=== PATIENT | female | born 1990 | race Caucasian/White ===

== ENCOUNTER 2022-04-26 00:16 | Emergency (ER) | payer OTHER, MEDICAID, SELFPAY ==
--- NOTE | ~2022-04-26 | CT_ITS ---
EXAMINATION: CT ABDOMEN AND PELVIS WITH CONTRAST CLINICAL INFORMATION: Right lower quadrant pain. Rule out appendicitis. COMPARISON: None available. TECHNIQUE: Multidetector volumetric images were obtained from the superior aspect of the liver through the pubic symphysis following administration 85 mL of Omnipaque 350 intravenous contrast. Sagittal and coronal reformatted images were obtained on the technologist's workstation. Oral contrast: No This CT examination was performed using dose optimization techniques as appropriate, variously including the following: *Automated exposure control *Adjustment of mA and/or kV according to patient size (this includes techniques or standardized protocols for targeted exams where dose is matched to indication/reason for exam; i.e. extremities or head) *Use of iterative reconstruction technique DLP: 901 mGy-cm FINDINGS: LUNG BASES: The visualized lung bases are unremarkable. LIVER, GALLBLADDER, AND BILIARY TREE: The liver is normal in size, shape, and attenuation. No focal hepatic lesion or biliary ductal dilatation is present. The gallbladder is unremarkable with no evidence of radiopaque gallstones, gallbladder wall thickening, or obvious pericholecystic inflammatory changes. PANCREAS: Unremarkable. SPLEEN: Unremarkable. ADRENAL GLANDS: Unremarkable. KIDNEYS AND URETERS: The kidneys are normal in size, shape, and attenuation. No hydronephrosis, hydroureter, or calculi seen. No perinephric stranding. BLADDER: Unremarkable. GASTROINTESTINAL TRACT: The stomach is unremarkable. Normal caliber small bowel. No obstruction. Retrocecal appendix. Gas within much of the appendix without wall thickening or dilatation. No free air. Small volume free fluid. ABDOMINAL WALL: No significant hernia is appreciated. LYMPH NODES: Normal. VASCULAR: Unremarkable. PELVIC VISCERA: Anteverted uterus. There is a left adnexal mass measuring 11.7 x 7.4 x 12.3 cm. This has the appearance of a dermoid, with associated fat and calcifications. OSSEOUS STRUCTURES: Unremarkable. CT/CT abdomen pelvis w IV con IMPRESSION: 1. Normal appendix. 2. Large left adnexal mass with associated fat and calcifications. This has the appearance of a dermoid. Fleischner guidelines were followed.
--- NOTE | ~2022-04-26 | US_ITS ---
EXAMINATION: US PELVIC COMPLETE US PELVIC OVARIAN DOPPLER CLINICAL INFORMATION: Left ovarian cyst. Evaluate for torsion. COMPARISON: CT abdomen/pelvis dated 04/26/2022. TECHNIQUE: Ultrasound of the pelvis is performed using both transabdominal and transvaginal transducers along with Doppler. Transvaginal imaging is performed due to inadequate visualization transabdominally. FINDINGS: Uterus: The uterus is anteverted and measures 10.5 x 4.1 x 5.9 cm. The double wall endometrial thickness is 0.1 mm. The uterus is smooth in contour and has normal myometrial echogenicity. No visible fibroid. Adnexa: Both ovaries are visualized. There is no pelvic ascites or fluid collection. Right ovary measures 2.4 x 1.9 x 2.3 cm. Ovarian volume of 5.5 mL. Simple right ovarian follicle measuring up to 1.9 cm. Findings are not clinically significant. Left ovary measures 12.2 x 7.8 x 11.8 cm. Ovarian volume of 587 mL. Complex cystic lesion redemonstrated in the left adnexa/ovary measuring up to 10.7 x 7.8 x 11.0 cm with calcification and echogenic, fat components. Findings are consistent with a dermoid. Unable to detect vascular flow within the ovaries due to difficult visualization. Ovarian torsion cannot be excluded in the appropriate clinical setting. US/US pelvic ovarian doppler IMPRESSION: 1. Complex left ovarian lesion with calcification and echogenic, fat components, consistent with a dermoid. Unable to detect vascular flow within the ovaries due to difficult visualization. Ovarian torsion cannot be excluded in the appropriate clinical setting. 2. Sonographically unremarkable uterus and right ovary.
--- NOTE | ~2022-04-26 | US_ITS ---
EXAMINATION: US PELVIC COMPLETE US PELVIC OVARIAN DOPPLER CLINICAL INFORMATION: Left ovarian cyst. Evaluate for torsion. COMPARISON: CT abdomen/pelvis dated 04/26/2022. TECHNIQUE: Ultrasound of the pelvis is performed using both transabdominal and transvaginal transducers along with Doppler. Transvaginal imaging is performed due to inadequate visualization transabdominally. FINDINGS: Uterus: The uterus is anteverted and measures 10.5 x 4.1 x 5.9 cm. The double wall endometrial thickness is 0.1 mm. The uterus is smooth in contour and has normal myometrial echogenicity. No visible fibroid. Adnexa: Both ovaries are visualized. There is no pelvic ascites or fluid collection. Right ovary measures 2.4 x 1.9 x 2.3 cm. Ovarian volume of 5.5 mL. Simple right ovarian follicle measuring up to 1.9 cm. Findings are not clinically significant. Left ovary measures 12.2 x 7.8 x 11.8 cm. Ovarian volume of 587 mL. Complex cystic lesion redemonstrated in the left adnexa/ovary measuring up to 10.7 x 7.8 x 11.0 cm with calcification and echogenic, fat components. Findings are consistent with a dermoid. Unable to detect vascular flow within the ovaries due to difficult visualization. Ovarian torsion cannot be excluded in the appropriate clinical setting. US/US pelvic complete IMPRESSION: 1. Complex left ovarian lesion with calcification and echogenic, fat components, consistent with a dermoid. Unable to detect vascular flow within the ovaries due to difficult visualization. Ovarian torsion cannot be excluded in the appropriate clinical setting. 2. Sonographically unremarkable uterus and right ovary.
[2022-04-26 00:48] VITALS: BP 135/101; PULSE 123; RESP 16; TEMP 36.9; O2SAT 97; BMI 43.1
[2022-04-26 01:19] LABS: MANUAL DIFF FLAG NO
[2022-04-26 01:20] LABS: Basophils Percent Auto 0.2 % (0-2); Eosinophils Absolute Auto 0.1 X10*3/uL (0.0-0.4); Eosinophils Percent Auto 0.4 % (0-4); Hematocrit 49.7 % (37.0-47.0); Hemoglobin 16.6 g/dl (12.0-16.0); Imm Gran Abs Auto 0.12 X10*3/uL (0.00-0.03); Imm Gran Pct Auto 0.5 % (0.0-0.4); Lymphocytes Absolute Auto 2.2 X10*3/uL (1.2-4.9); Lymphocytes Percent Auto 9.8 % (20-40); Mean Corpuscular HGB Conc 33.4 g/dl (31.0-35.0); Mean Corpuscular Hemoglobin 28.3 pg (27.0-33.0); Mean Corpuscular Volume 84.8 fL (80.0-98.0); Mean Platelet Volume 9.4 fL (9.4-12.3); Monocytes Absolute Auto 0.9 X10*3/uL (0.1-1.2); Monocytes Percent Auto 3.9 % (2-11); Neutrophils Absolute Auto 19.6 x10*3/uL (2.0-8.3); Neutrophils Percent Auto 85.2 % (45-73); Platelet Count 376 X10*3/uL (160-400); Red Blood Count 5.86 X10*6/uL (4.20-5.50); Red Cell Distribution Width 13.3 % (11.0-16.0)
--- NOTE | 2022-04-26 01:32 | ED_ITS ---
HPI - Abdominal Pain General Chief Complaint: Abdominal Pain Stated Complaint: Abdominal pain, weakness, vomiting Time Seen by Provider: 04/26/22 01:01 Source: patient and family (, Sourav) Mode of arrival: ambulatory Limitations: language barrier (Patient is Sudanese-speaking only, interpreter and translator used. Patient's speaks Pashto and Sudanese) History of Present Illness HPI narrative: 31-year-old female who presents emergency department for evaluation of abdominal pain. She states the pain started yesterday morning and she thought that she is having cramps similar to which she experiences when she starts her menstrual periods. She states that the pain however became more severe and was located in her epigastric area and throughout her entire abdomen. The pain was intermittent but 8/10 at its worst. The patient states she had multiple episodes of vomiting and 4 episodes of loose diarrheal stool. There was no blood in the emesis or the stool. She states she was feeling very weak. She states she had shaking chills. She felt dizzy and became very diaphoretic therefore her brought her to the emergency department for evaluation. The patient denied fever, rhinorrhea, sore throat, cough, chest pain, shortness of breath. She denied frequency, urgency or dysuria. She states she has not had any menstrual bleeding. She denied dark tarry stools or bloody stools. Related Data Allergies Allergy/AdvReac Type Severity Reaction Status Date / Time SEAFOOD Allergy Severe ANAPHYLAXIS Uncoded 10/26/19 19:46 Review of Systems Review of Systems Yes all other systems are reviewed and are negative [facility] Past Medical History [facility] Narrative: Past medical history: Pre diabetes, hypertension. Past surgical history : Right ovarian teratoma. Social history: She is and is here with her Sourav. She denies tobacco use, alcohol use and drug use. Physical Exam ED Vital Signs: Vital Signs - 24 hr 04/26/22 00:48 Temperature 98.4 F Pulse Rate 123 H Respiratory Rate 16 Blood Pressure 135/101 H Pulse Oximetry 97 BMI result Body Mass Index 43.1 Const General: cooperative and no acute distress Orientation/consciousness: oriented to person and oriented to place Limitations: no limitations HENMT Head: Yes normal to inspection, Yes normocephalic and Yes atraumatic Ears: external ears normal General nose exam: Normal external nose present Face and sinus: Yes normal facial exam Mouth: Normal oral and palatal mucosa present Throat: Yes posterior oropharynx normal Eyes General: appearance normal, both eyes and all related structures Pupils: Equal, round and reactive pupils present Neck Neck: Yes normal visual inspection, Yes no lymphadenopathy, Yes trachea midline and Yes supple Chest Chest palpation & inspection: normal inspection of the chest and normal palpation of entire chest wall Resp Effort & Inspection: normal respiratory effort and able to speak in complete sentences Auscultation: clear to auscultation bilaterally Cardio Rate: regular rate Rhythm: regular rhythm Heart sounds: S1 normal heart sound present, S2 normal heart sound present and no murmurs GI Inspection: Yes normal to inspection Palpation (GI): Soft to palpation, Tenderness to palpation present (GI) (Mild di ffuse tenderness) in the RLQ (Moderate) and no guarding Auscultation: normal bowel sounds General: Yes no CVA tenderness Back/Spine/Pelvis Back: no CVA tenderness Skin General skin exam: no rashes or lesions noted Neuro General: oriented to person and oriented to place Cranial nerves: Yes Equal, round and reactive pupils present Cognition (Neuro): normal cognition Motor exam (neuro): 5/5 motor strength present throughout Extrem General: Yes normal to inspection Psych Appearance: grossly normal Speech and movement: Normal speech and movement present Affect: normal affect Attitude: cooperative Thought process: Normal thought process present Medical Decision Making Medical Decision Making MDM Narrative: 31-year-old female who presents emergency department for evaluation of abdominal pain that started yesterday morning, got progressively worse, associated with nausea, vomiting, diaphoresis, weakness and diarrhea. The patient heart rate was elevated at 123 and her blood pressure was elevated 135/101. Abdominal exam revealed moderate localized right lower quadrant tenderness and mild diffuse tenderness. I ordered a CBC, BMP, liver panel, lipase, quantitative beta-hCG, lactic acid, blood cultures, x2, COVID-19, influenza and RSV. CT scan of the abdomen pelvis with IV contrast will be obtained. Patient's pain was treated with Toradol 15 mg IV, nausea was treated with Zofran 4 mg IV. Patient has a markedly elevated white blood cell count at 23,000 therefore I ordered Unasyn 3 g IV. 0143: My interpretation the patient's laboratory evaluation is as follows: WBCs elevated 23,000 with a left shift 85 neutrophils and 10 lymphocytes. H&H was elevated 16.6 and 49.7-this could be secondary to hemoconcentration. Glucose elevated 120. LFTs and lipase were normal. The urine test negative. Urinalysis negative. At the end of my shift, the patient's CT scan is pending therefore the patien t's care was turned over to my colleague, Dr. Tina Beal. Lab Data 04/26/22 01:15 04/26/22 01:15 Labs: Lab Results 04/26/22 Range/Units 01:15 WBC 23.0 H (4.8-10.8) X10*3/uL RBC 5.86 H (4.20-5.50) X10*6/uL Hgb 16.6 H (12.0-16.0) g/dl Hct 49.7 H (37.0-47.0) % MCV 84.8 (80.0-98.0) fL MCH 28.3 (27.0-33.0) pg MCHC 33.4 (31.0-35.0) g/dl RDW 13.3 (11.0-16.0) % Plt Count 376 (160-400) X10*3/uL MPV 9.4 (9.4-12.3) fL Immature Gran % (Auto) 0.5 H (0.0-0.4) % Neut % (Auto) 85.2 H (45-73) % Lymph % (Auto) 9.8 L (20-40) % Wheeler % (Auto) 3.9 (2-11) % Eos % (Auto) 0.4 (0-4) % Baso % (Auto) 0.2 (0-2) % Lymph # (Auto) 2.2 (1.2-4.9) X10*3/uL Wheeler # (Auto) 0.9 (0.1-1.2) X10*3/uL Eos # (Auto) 0.1 (0.0-0.4) X10*3/uL Baso # (Auto) 0.0 (0.0-0.2) X10*3/uL Abs Immat Gran (auto) 0.12 H (0.00-0.03) X10*3/uL Absolute Neuts (auto) 19.6 H (2.0-8.3) x10*3/uL Absolute Nucleated RBC 0.000 (0.0-0.012) X10*3/uL Nucleated RBC % (auto) 0.0 (0.0-0.2) /100WBC Discharge Plan Discharge Clinical Impression: Abdominal pain, Nausea & vomiting, Diarrhea, Leukocytosis Patient Disposition: Still a Patient
[2022-04-26 01:36] LABS: Alanine Aminotransferase 13 U/L (0-31); Albumin Level 3.7 g/dL (3.5-5.0); Alkaline Phosphatase 79 U/L (39-117); Anion Gap 14 (12-20); Aspartate Amino Transferase 12 U/L (5-31); Bilirubin Direct < 0.2 mg/dL (0.0-0.5); Bilirubin Total 0.4 mg/dL (0.0-1.0); Blood Urea Nitrogen 14 mg/dL (9-16); Calcium 9.3 mg/dL (8.4-10.2); Carbon Dioxide 23 mmol/L (22-29); Chloride 106 mmol/L (96-108); Creatinine Clr Calc Pharmacy 119.5; Estimated Glomerular Filt Rate > 60; Glucose Random 120 mg/dL (60-115); Lipase 16 U/L (8-78); Potassium 4.4 mmol/L (3.3-5.1); Sodium 139 mmol/L (135-145); Total Protein 7.1 g/dL (6.5-8.0)
[2022-04-26 01:52] LABS: Appearance Urine Turbid; Color Urine RED; Glucose Urine UA Negative (Negative); Leukocyte Esterase Urine Trace (Negative); Nitrite Urine Negative (Negative); PH 5.5 (5.0-9.0); Specific Gravity - Urine >= 1.030 (1.005-1.025); Urine Blood Large (3+) (Negative); Urine Ketones Trace mg/dL (Negative); Urine Protein 100 (2+) mg/dL (Neg-Trace)
[2022-04-26 01:53] LABS: UMIC TRIGGER UACC YES
[2022-04-26 01:54] LABS: RBC Urine >20 /HPF (0-2); Squamous Epithelial Cell Urine 0-2 /HPF (0-2); UPreg QC Valid YES; Urine Pregnancy NEGATIVE (NEGATIVE); WBC Urine 0-5 /HPF (0-5)
[2022-04-26 01:55] LABS: Bacteria Urine None Seen (None Seen); Hyaline Casts Urine 0-2 /LPF (0-2)
[2022-04-26 01:57] LABS: Influenza A PCR NEGATIVE (Negative); Influenza B PCR NEGATIVE (Negative); Resp Syncy Virus RNA Qual PCR NEGATIVE (Negative); SARS COV2 PCR INHOUSE NEGATIVE (Negative)
--- OUTSIDE RECORDS SUMMARY | 2022-04-26 01:58 | XMS_ITS | Continuity of Care Document ---
:1990 Author Organization [facility] Address [address] [place] [phone]- Care Team Providers Name Role Phone Emil GEORGE, Alia Waller Primary Care Physician [place] [facility] [place] 06/17[place]20 - 07/17/20 [facility] [address] [place] [id number]- Attending Physician: Joselo ESPAÑA, Ирина Michaels Admitting Physician: Joselo ESPAÑA, Ирина Michaels Allergies, Adverse Reactions, Alerts Substance Reaction Severity Status penicillin rash Active Immunizations Given and Recorded Vaccine Date Status Refusal Reason influenza virus vaccine, inactivated 03/05/17 Given Medications Flonase 50 mcg/inh nasal spray 1 sprays, Nares, Both, 2 times a day, in each nostril, # 15.8 mL, 1 Refills, Maintenance, 04/03/20 15:48:00 EST, [place], [facility] Partial fill upon patient request if the prescriptionis for a schedule II opioid drug., 1 sprays Nares... Start Date: 04/03/20 Status: OrderedLexapro 10 mg oral tablet 1 tablet = 10 mg, By Mouth, Daily, # 30 tablet, 3 Refills, Maintenance, 06/17/20 15:43:00 EDT, Tablet, [facility] Partial fill upon patient request if the prescription is for a schedule II opioid drug., 165, cm, 06/17/20 14:21:00 EDT,... 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
--- OUTSIDE RECORDS SUMMARY | 2022-04-26 01:58 | XMS_ITS | Continuity of Care Document ---
:1990 Author Organization [facility] Address [address] [place] [phone]- Care Team Providers Name Role Phone Emil GEORGE, Alia Waller Primary Care Physician Encounter [facility] [place] Date(s): 11/19/21 - 12/19/21 [facility] [address] [place] [id number] Attending Physician: Krishna Martinez Admitting Physician: Krishna Martinez Referring Physician: AdmtrKrishna Allergies, Adverse Reactions, Alerts Substance Reaction Severity Status NIFEdipine Active penicillin rash Active Seafood Active hydroCHLOROthiazide dizziness Active amLODIPine bilateral lower extremity edema Active Immunizations Given and Recorded Vaccine Date Status Refusal Reason influenza virus vaccine, inactivated 03/05/17 Given Medications acetaminophen 325 mg oral tablet 650 mg, 2, tablet, By Mouth, 3 times a day, PRN, # 180 tablet, Refills 1, Tot. Refills 1, Maintenance, for pain, 09/19/20 17:48:00 EDT, Route to Pharmacy Electronically, [facility]/pharmacy #[id number], Partial fill upon patient request if the prescription is for... Start Date: 09/19/20 Status: Orderedazelastine 0.05% ophthalmic solution 1 drops, Eyes, Both, 2 times a day, PRN for allergy symptoms, afghan label, # 6 mL, 2 Refills, Maintenance, 06/30/21 15:40:00 EDT, [facility] Partial fill upon patient request if the prescription is for a schedule II opioid drug., 1... Start Date: 06/30/21 Status: Orderedcetirizine 10 mg oral capsule 1 capsule = 10 mg, By Mouth, Daily, afghan label, # 30 capsule, 2 Refills, Maintenance, 06/30/21 15:38:00 EDT, [facility], Partial fill upon patient request if the prescription is for a schedule II opioid drug., 165, cm, 06/30/21 14:5... Start Date: 06/30/21 Status: Ordereddiclofenac 1% topical gel 1 application, Topically, 4 times a day, PRN Pain , Mild, # 100 Gm, 1 Refills, Maintenance, 09/19/2116:49:00 EDT, Gel, [facility]/pharmacy #[id number], Partial fill upon patient request if the prescription is for a schedule II opioid drug., 165, cm, 09/19/20 17:2... Start Date: 09/19/20 Status: OrderedFlonase 50 mcg/inh nasal spray 1 sprays, Nares, Both, 2 times a day, in each nostril, # 15.8 mL, 1 Refills, Maintenance, 06/30/21 15:36:00 EDT, [place], [facility], Partial fill upon patient request if the prescriptionis for a schedule II opioid drug., 1 sprays Nares... Start Date: 06/30/21 Status: Orderedolmesartan 5 mg oral tablet 1 tablet = 5 mg, By Mouth, Daily, afghan, # 30 tablet, 4 Refills, Maintenance, 09/11/21 11:29:00 EDT, Tablet, [facility]., d/c nifedipine, 165, cm, 09/11/21 11:28:00 EDT, Height, 101, kg, 08/22/20 22:45:00 EDT, Dry Weight Start Date: 09/11/21 Status: Orderedsertraline 50 mg oral tablet 1 tablet = 50 mg, By Mouth, Daily, afghan, # 30 tablet, 11 Refills, Maintenance, 12/05/20 12:40:00 EDT, Tablet, [facility]/pharmacy #[id number], Partial fill upon patient request if the prescription is for a schedule II opioid drug., 165, cm, 09/19/20 17:20:00 ED... Start Date: 12/05/20 Status: Orderedspironolactone 25 mg oral tablet 25 mg, 1, tablet, By Mouth, 2 times a day, afghan, # 60 tablet, Refills 4, Tot. Refills 4, Maintenance, 09/11/21 11:28:00 EDT, Route to Pharmacy Electronically, [facility], d/c nifedipine, 165, cm, 09/11/21 11:28:00 EDT, Height, 101,... Start Date: 09/11/21 Status: Ordered Problem List Condition Confirmation Course Effective Dates Status Health Stat us Informant Benign teratoma of Confirmed Active ovary - ovary removed COVID-19 - Confirmed Active 03/31/2020 Depression Confirmed Active Breast changes, Confirmed Active fibrocystic History of panic Confirmed Active attacks Hx of tubal Confirmed Active ligation Hypertension Confirmed Active Hypokalemia Confirmed Active Obese class II Confirmed Active Obesity Confirmed Active Pre-diabetes Confirmed Active Social History Social History Type Response Smoking Status Never smoker entered on: 03/05/17 Sex Female Patient Care team information Care Team PersonnelName: Alia Stein MD Position: [facility] Primary Care Physician Member Role: PCP Address: Address: [address] [place] [address], -Level [facility] [place] [address]- Care Team Related PersonsName: JAN DENG Address: [address] [address]
--- OUTSIDE RECORDS SUMMARY | 2022-04-26 01:58 | XMS_ITS | Continuity of Care Document ---
:1990 Author Organization [facility] Address [address] [place] [phone]- Care Team Providers Name Role Phone Alia Stein MD Primary Care Physician [place] [facility] [place](s): 08/05/21 - 09/04/21 [facility] [address] [place] [id number] Allergies, Adverse Reactions, Alerts Substance Reaction Severity Status penicillin rash Active Seafood Active amLODIPine bilateral lower extremity edema Active hydroCHLOROthiazide dizziness Active Immunizations Given and Recorded Vaccine Date Status Refusal Reason influenza virus vaccine, inactivated 03/05/17 Given Medications acetaminophen 325 mg oral tablet 650 mg, 2, tablet, By Mouth, 3 times a day, PRN, # 180 tablet, Refills 1, Tot. Refills 1, Maintenance, for pain, 09/19/20 17:48:00 EDT, Route to Pharmacy Electronically, [facility]/pharmacy #[id number], Partial fill upon patient request if the prescription is for... Start Date: 09/19/20 Status: Orderedazelastine 0.05% ophthalmic solution 1 drops, Eyes, Both, 2 times a day, PRN for allergy symptoms, french label, # 6 mL, 2 Refills, Maintenance, 06/30/21 15:40:00 EDT, [facility]., Partial fill upon patient request if the prescription is for a schedule II opioid drug., 1... Start Date: 06/30/21 Status: Orderedcetirizine 10 mg oral capsule 1 capsule = 10 mg, By Mouth, Daily, french label, # 30 capsule, 2 Refills, Maintenance, 06/30/21 15:38:00 EDT, [facility]., Partial fill upon patient request if the prescription is for a schedule II opioid drug., nadia [place], 06/30/21 14:5... Start Date: 06/30/21 Status: Ordereddiclofenac 1% topical gel 1 application, Topically, 4 times a day, PRN Pain , Mild, # 100 Gm, 1 Refills, Maintenance, 09/19/2116:49:00 EDT, Gel, [facility]/pharmacy #[id number], Partial fill upon patient request if the prescription is for a schedule II opioid drug., nadia [place], 09/19/20 17:2... Start Date: 09/19/20 Status: OrderedFlonase 50 mcg/inh nasal spray 1 sprays, Nares, Both, 2 times a day, in each nostril, # 15.8 mL, 1 Refills, Maintenance, 06/30/21 15:36:00 EDT, [place], [facility], Partial fill upon patient request if the prescriptionis for a schedule II opioid drug., 1 sprays Nares... Start Date: 06/30/21 Status: OrderedNIFEdipine 30 mg oral tablet, extended release 30 mg, 1, tablet, By Mouth, Daily, # 30 tablet, Refills 4, Tot. Refills 4, Maintenance, 08/07/21 14:47:00 EDT, Route to Pharmacy Electronically, [facility], Partial fill upon patient request if the prescription is for a schedule II opi... Start Date: 08/07/21 Status: Orderedsertraline 50 mg oral tablet 1 tablet = 50 mg, By Mouth, Daily, french, # 30 tablet, 11 Refills, Maintenance, 12/05/20 12:40:00 EDT, Tablet, [facility]/pharmacy #[id number], Partial fill upon patient request if the prescription is for a schedule II opioid drug., nadia [place], 09/19/20 17:20:00 ED... 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
--- OUTSIDE RECORDS SUMMARY | 2022-04-26 01:58 | XMS_ITS | Continuity of Care Document ---
:1990 Author Organization [facility] Address [address] [place] [phone]- Care Team Providers Name Role Phone Alia Stein MD Primary Care Physician [place] [facility] [place] 11/21/21 - 01/22/22 [facility] [address] [place] [id number]- Attending Physician: Alia Stein MD Admitting Physician: Alia Stein MD Allergies, Adverse Reactions, Alerts Substance Reaction Severity Status NIFEdipine Active penicillin rash Active Seafood Active amLODIPine bilateral [...] 09/19/20 17:48:00 EDT, Route to Pharmacy Electronically, [facility]/pharmacy #[id number], Partial fill upon patient request if the prescription is for... Start Date: 09/19/20 Status: Orderedazelastine 0.05% ophthalmic solution 1 drops, Eyes, Both, 2 times a day, PRN for allergy symptoms, swedish label, # 6 mL, 2 Refills, Maintenance, 06/30/21 15:40:00 EDT, [facility] Partial fill upon patient request if the prescription is for a schedule II opioid drug., 1... Start Date: 06/30/21 Status: Orderedcetirizine 10 mg oral capsule 1 capsule = 10 mg, By Mouth, Daily, swedish label, # 30 capsule, 2 Refills, Maintenance, 06/30/21 15:38:00 EDT, [facility], Partial fill upon patient request if the prescription is for a schedule II opioid drug., 165, cm, 06/30/21 14:5... Start Date: 06/30/21 Status: Ordereddiclofenac 1% topical gel 1 application, Topically, 4 times a day, PRN Pain , Mild, # 100 Gm, 1 Refills, Maintenance, 09/19/2116:49:00 EDT, Gel, [id number] Partial fill upon patient request if the prescription is for a schedule II opioid drug., 165, cm, 09/19/20 17:2... Start Date: 09/19/20 Status: OrderedFlonase 50 mcg/inh nasal spray 1 sprays, Nares, Both, 2 times a day, in each nostril, # 15.8 mL, 1 Refills, Maintenance, 06/30/21 15:36:00 EDT, [place], [facility], Partial fill upon patient request if the prescriptionis for a schedule II opioid drug., 1 sprays Nares... Start Date: 06/30/21 Status: Orderedolmesartan 5 mg oral tablet 1 tablet = 5 mg, By Mouth, Daily, LABEL IN KYRGYZ, # 30 tablet, 11 Refills, Maintenance, 01/15/22 15:33:00 EST, Tablet, [facility]., d/c nifedipine, 165, cm, 11/19/21 15:39:00 EDT, Height, 101, kg, 08/22/20 22:45:00 EDT, Dry Weight Start Date: 01/15/22 Status: Orderedsertraline 50 mg oral tablet 1 tablet = 50 mg, By Mouth, Daily, swedish, # 30 tablet, 11 Refills, Maintenance, 12/05/20 12:40:00 EDT, Tablet, [facility]/pharmacy #[id number], Partial fill upon patient request if the prescription is for a schedule II opioid drug., 165, nadia, 09/19/20 17:20:00 ED... Start Date: 12/05/20 Status: Orderedspironolactone 25 mg oral tablet 25 mg, 1, tablet, By Mouth, 2 times a day, LABEL IN KYRGYZ, # 60 tablet, Refills 11, Tot. Refills 11, Maintenance, 01/15/22 15:33:00 EST, Route to Pharmacy Electronically, [facility]., d/c nifedipine, 165, cm, 11/19/21 15:39:00 EDT, He... Start Date: 01/15/22 Status: Ordered Problem List Condition Confirmation Course [...] Care Team PersonnelName: Alia Stein MD Position: [facility] Primary Care Physician Member Role: PCP Address: Address: [address] [place] [address], C-Level [facility] [place] [address]- Care Team Related PersonsName: JAN DENG Address: home [address] [address]
--- OUTSIDE RECORDS SUMMARY | 2022-04-26 01:58 | XMS_ITS | Continuity of Care Document ---
:1990 Author Organization [facility] Address [address] [place] [address]- Care Team Providers Name Role Phone Emil GEORGE, Alia Waller Primary Care Physician Encounter [facility] Date(s): 06/17/20 - 07/17/20 [facility] [address] [place] [id number]- Allergies, Adverse Reactions, Alerts Substance Reaction Severity Status penicillin rash Active Immunizations Given and Recorded Vaccine Date Status Refusal Reason influenza virus vaccine, inactivated 03/05/17 Given Medications Flonase 50 mcg/inh nasal spray 1 sprays, Nares, Both, 2 times a day, in each nostril, # 15.8 mL, 1 Refills, Maintenance, 04/03/20 15:48:00 EST, [place] Partial fill upon patient request if the prescriptionis for a schedule II opioid drug., 1 sprays Nares... Start Date: 04/03/20 Status: OrderedLexapro 10 mg oral tablet 1 tablet = 10 mg, By Mouth, Daily, # 30 tablet, 3 Refills, Maintenance, 06/17/20 15:43:00 EDT, Tablet, [facility] Partial fill upon patient request [...]
--- OUTSIDE RECORDS SUMMARY | 2022-04-26 01:58 | XMS_ITS | Continuity of Care Document ---
:[address] [facility] Address [address] [place] [id number]- Care Team Providers Name Role Phone Emil GEORGE, Alia Waller Primary Care Physician Encounter [facility] [place] Date(s): 06/17/20 - 07/18/20 [facility] [address] [place] [phone]- Attending Physician: Jsoelo ESPAÑA, Ирина Michaels Admitting Physician: Joselo ESPAÑA, Ирина Michaels Allergies, Adverse Reactions, Alerts Substance Reaction Severity Status penicillin rash Active Immunizations Given and Recorded Vaccine Date Status Refusal Reason influenza virus vaccine, inactivated 03/05/17 Given Medications Flonase 50 mcg/inh nasal spray 1 sprays, Nares, Both, 2 times a day, in each nostril, # 15.8 mL, 1 Refills, Maintenance, 04/03/20 15:48:00 EST, [place], [facility] Partial fill upon patient request if the prescriptionis for a schedule II opioid drug., 1 sprays Nares... Start Date: 04/03/20 Status: OrderedLexapro 10 mg oral tablet 1 tablet = 10 mg, By Mouth, Daily, # 30 tablet, 3 Refills, Maintenance, 06/17/20 15:43:00 EDT, Tablet, [facility] Partial fill upon patient request [...]
--- OUTSIDE RECORDS SUMMARY | 2022-04-26 01:58 | XMS_ITS | Continuity of Care Document ---
:1990 Author Organization [facility] Address [address] [place] [phone]- Care Team Providers Name Role Phone Alia Stein MD Primary Care Physician [place] [facility] [place] 11[place]13/21 [facility] [address] [place] [address]- Attending Physician: Krishna Martinez Admitting Physician: AdmtrKrishna Referring Physician: Admtr, Ar8 Allergies, Adverse Reactions, Alerts Substance Reaction Severity [...] 09/19/20 17:48:00 EDT, Route to Pharmacy Electronically, [facility]/pharmacy #[id number], Partial fill upon patient request if the prescription is for... Start Date: 09/19/20 Status: Orderedazelastine 0.05% ophthalmic solution 1 drops, Eyes, Both, 2 times a day, PRN for allergy symptoms, nigerian label, # 6 mL, 2 Refills, Maintenance, 06/30/21 15:40:00 [facility] Partial fill upon patient request if the prescription is for a schedule II opioid drug., 1... Start Date: 06/30/21 Status: Orderedcetirizine 10 mg oral capsule 1 capsule = 10 mg, By Mouth, Daily, nigerian label, # 30 capsule, 2 Refills, Maintenance, 06/30/21 15:38:00 EDT, [facility], Partial fill upon patient request if the prescription is for a schedule II opioid drug., 165, cm, 06/30/21 14:5... Start Date: 06/30/21 Status: Ordereddiclofenac 1% topical gel 1 application, Topically, 4 times a day, PRN Pain , Mild, # 100 Gm, 1 Refills, Maintenance, 09/19/2116:49:00 EDT, [facility], [id number] Partial fill upon patient request if the prescription is for a schedule II opioid drug., 165, cm, 09/19/20 17:2... Start Date: 09/19/20 Status: OrderedFlonase 50 mcg/inh nasal spray 1 sprays, Nares, Both, 2 times a day, in each nostril, # 15.8 mL, 1 Refills, Maintenance, 06/30/21 15:36:00 EDT, [place], [facility], Partial fill upon patient request if the prescriptionis for a schedule II opioid drug., 1 sprays Nares... Start Date: 06/30/21 Status: Orderedolmesartan 5 mg oral tablet 1 tablet = 5 mg, By Mouth, Daily, nigerian, # 30 tablet, 4 Refills, Maintenance, 09/11/21 11:29:00 EDT, Tablet, [facility]., d/c nifedipine, 165, cm, 09/11/21 11:28:00 EDT, Height, 101, kg, 08/22/20 22:45:00 EDT, Dry Weight Start Date: 09/11/21 Status: Orderedsertraline 50 mg oral tablet 1 tablet = 50 mg, By Mouth, Daily, nigerian, # 30 tablet, 11 Refills, Maintenance, 12/05/20 12:40:00 EDT, Tablet, [facility]/pharmacy #[id number], Partial fill upon patient request if the prescription is for a schedule II opioid drug., 165, nadia, 09/19/20 17:20:00 ED... Start Date: 12/05/20 Status: Orderedspironolactone 25 mg oral tablet 25 mg, 1, tablet, By Mouth, 2 times a day, nigerian, # 60 tablet, Refills 4, Tot. Refills 4, Maintenance, 09/11/21 11:28:00 EDT, Route to Pharmacy Electronically, [facility] d/c nifedipine, 165, cm, 09/11/21 11:28:00 EDT, [...] 03/05/17 Sex Female Patient Care team information PersonnelName: Emil GEORGE, Alia Waller Address: Address: [address] [place] [address], -Level [facility] [place] [address]-
--- OUTSIDE RECORDS SUMMARY | 2022-04-26 01:58 | XMS_ITS | Continuity of Care Document ---
:1990 Author Organization [facility] Address [address] [place] [phone]- Care Team Providers Name Role Phone Alia Stein MD Primary Care Physician En[place] [facility] [place] Date(s): 11/20/20 - 12/20/[address] [address] Attending Physician: Krishna Martinez Admitting Physician: AdmtrKrishna Referring Physician: Admtr, Ar8 Allergies, Adverse Reactions, Alerts Substance Reaction Severity Status penicillin rash Active Seafood Active hydroCHLOROthiazide dizziness Active Immunizations Given and Recorded Vaccine Date Status Refusal Reason influenza virus vaccine, inactivated 03/05/17 Given Medications acetaminophen 325 mg oral tablet 650 mg, 2, tablet, By Mouth, 3 times a day, PRN, # 180 tablet, Refills 1, Tot. Refills 1, Maintenance, for pain, 09/19/20 17:48:00 EDT, Route to Pharmacy Electronically, [facility]/pharmacy #[id number], Partial fill upon patient request if the prescription is for... Start Date: 09/19/20 Status: OrderedamLODIPine 5 mg oral tablet 5 mg, 1, tablet, By Mouth, Daily, # 30 tablet, Refills 1, Tot. Refills 1, Maintenance, 12/12/20 16:47:00 EDT, Route to Pharmacy Electronically, [id number], Partial fill upon patient request if the prescription is for a schedule II opioid drug.... Start Date: 12/12/20 Status: Ordereddiclofenac 1% topical gel 1 application, Topically, 4 times a day, PRN Pain , Mild, # 100 Gm, 1 Refills, Maintenance, 09/19/2116:49:00 EDT, Gel, [id number], Partial fill upon patient request if the prescription is for a schedule II opioid drug., 165, cm, 09/19/20 17:2... Start Date: 09/19/20 Status: OrderedFlonase 50 mcg/inh nasal spray 1 sprays, Nares, Both, 2 times a day, in each nostril, # 15.8 mL, 1 Refills, Maintenance, 04/03/20 15:48:00 EST, [place], [facility], Partial fill upon patient request if the prescriptionis for a schedule II opioid drug., 1 sprays Nares... Start Date: 04/03/20 Status: Orderedsertraline 50 mg oral tablet 1 tablet = 50 mg, By Mouth, Daily, welsh, # 30 tablet, 11 Refills, Maintenance, 12/05/20 12:40:00 EDT, Tablet, [facility]/pharmacy #[id number], Partial fill upon patient request if [...] tubal ligation(Confirmed) Active Hypertension(Confirmed) Active Hypokalemia(Confirmed) Active Obesity(Confirmed) Active Social History Social History Type Response Smoking Status Never smoker entered on: 03/05/17 Sex Female
--- OUTSIDE RECORDS SUMMARY | 2022-04-26 01:58 | XMS_ITS | Continuity of Care Document ---
:1990 Author Organization [facility] Address [address] [place] [address]- Care Team Providers Name Role Phone Emil GEORGE, Alia Waller Primary Care Physician Encounter [facility] Date(s): 08/23/20 - 09/22/20 [facility] [address] [place] [phone]- Allergies, Adverse Reactions, Alerts Substance Reaction Severity [...] 09/19/20 17:48:00 EDT, [id number] Partial fill upon patient request if the prescription is for... Start Date: 09/19/20 Status: Ordereddiclofenac 1% topical gel 1 application, Topically, 4 times a day, PRN Pain , Mild, # 100 Gm, 1 Refills, Maintenance, 09/19/2116:49:00 EDT, Gel, [facility]/pharmacy #[id number], Partial fill upon patient request if the prescription is for a schedule II opioid drug., 165, cm, 09/19/20 17:2... Start Date: 09/19/20 Status: OrderedFlonase 50 mcg/inh nasal spray 1 sprays, Nares, Both, 2 times a day, in each nostril, # 15.8 mL, 1 Refills, Maintenance, 04/03/20 15:48:00 EST, [place], Partial fill upon patient request if the prescriptionis for a schedule II opioid drug., 1 sprays Nares... Start Date: 04/03/20 Status: Orderedhydrochlorothiazide 25 mg oral tablet 25 mg, 1, tablet, By Mouth, Daily, # 30 tablet, Refills 11, Tot. Refills 11, Maintenance, 09/19/20 17:39:00 EDT, Route to Pharmacy Electronically, [facility]/pharmacy #[id number], please d/c amlodipine - patient will stay on HTZD 25 mg daily, 165, cm, 09/19/20 17:... Start Date: 09/19/20 Status: Orderedsertraline 50 mg oral tablet 1 tablet = 50 mg, By Mouth, Daily, 1/2 tab daily x 14 days then 1 tab daily, # 30 tablet, 4 Refills,Maintenance, 09/10/20 9:34:00 EDT, Tablet, [facility]/pharmacy #[id number], Partial fill upon patient request if the prescription is for a schedule II opioid drug.... Start Date: 09/10/20 Status: Ordered Problem List Condition Effective Dates [...]
--- OUTSIDE RECORDS SUMMARY | 2022-04-26 01:58 | XMS_ITS | Continuity of Care Document ---
:1990 Author Organization [facility] Address [address] [place] [address]- Care Team Providers Name Role Phone Emil GEORGE, Alia Waller Primary Care Physician En[place] [facility] [place](s): 04/27/19 - 05/07/19 [facility] [address] [place] [address]- [facility] Attending Physician: Krishna Martinez Admitting Physician: Krishna Martinez Referring Physician: Krishna Martinez Allergies, Adverse Reactions, Alerts No Known Medication Allergies Immunizations Given and Recorded Vaccine Date Status Refusal Reason influenza virus vaccine, inactivated 03/05/17 Given Medications acetaminophen 325 mg oral tablet 650 mg, 2, tablet, By Mouth, 3 times a day, PRN, # 180 tablet, Refills 0, Tot. Refills 0, Maintenance, for pain, 04/27/19 14:06:00 EDT, Route to Pharmacy Electronically, [facility]/pharmacy #[id number], 165, cm, 01/23/19 14:22:00 EST, Height, 101.7, kg, 01/11/18 2... Start Date: 04/27/19 Status: Orderedacetaminophen 325 mg oral tablet 650 mg, 2, tablet, By Mouth, 3 times a day, PRN, # 180 tablet, Refills 11, Tot. Refills 11, Maintenance, for pain, 01/28/18 15:32:45 EST, Route to Pharmacy Electronically, [id number], [id number] Start Date: 01/28/18 Status: Orderedbenzoyl peroxide 10% topical cream See Instructions, apply a small amount to affected areas daily at bedtime. Equ[place] label please., # 30 Gm, 0 Refills, Maintenance, 01/16/19 14:31:15 EST, apply a small amount to affected areas daily atbedtime. [place] label please., 165, cm, 01/16/19... Start Date: 01/16/19 Status: OrderedBlood Pressure Monitor See Instructions, # 1 units, Maintenance, Measure blood pressure daily, 12/22/18 14:01:19 EST, Instructions in [place], Compound Start Date: 12/22/18 Status: OrderedNaprosyn 500 mg oral tablet 1 tablet = 500 mg, By Mouth, 2 times a day, PRN Pain , Mild, # 60 tablet, 2 Refills, Maintenance, 01/23/19 14:52:28 EST, Tablet Start Date: 01/23/19 Status: Orderedpermethrin 5% topical cream 1 application, Topically, Once, # 60 Gm, 0 Refills, Soft Stop, 01/09/19 11:55:05 EST, Cream, 1 application Topically Once Start Date: 01/09/19 Status: Orderedsertraline 25 mg oral tablet 1 tablet = 25 mg, By Mouth, Daily at bedtime, # 30 tablet, 2 Refills, Maintenance, 12/22/18 13:58:18EST, Tablet, Instructions in [place] Start Date: 12/22/18 Status: Orderedtriamcinolone 0.025% topical cream 1 application, Topically, 3 times a day, PRN itching, turkish, # 60 Gm, 0 Refills, Maintenance, 01/09/19 11:59:38 EST, Cream, 1 application Topically 3 times a day,PRN:itching,Instr:turkish Start Date: 01/09/19 Status: Ordered Problem List Condition Effective Dates Status Health Status Informant 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
--- OUTSIDE RECORDS SUMMARY | 2022-04-26 01:58 | XMS_ITS | Continuity of Care Document ---
:1990 Author Organization [facility] Address [address] [place] [address]- Care Team Providers Name Role Phone Emil GEORGE, Alia Waller Primary Care Physician [place] [facility] [place]22 [facility] [address] [place] [address]- Attending Physician: Not on Staff, Attending MD Allergies, Adverse Reactions, Alerts Substance Reaction [...] 17:48:00 EDT, Route to Pharmacy Electronically, [facility]/pharmacy #[id number], Partial fill upon patient request if the prescription is for... Start Date: 09/19/20 Status: Orderedazelastine 0.05% ophthalmic solution 1 drops, Eyes, Both, 2 times a day, PRN for allergy symptoms, setswana label, # 6 mL, 2 Refills, Maintenance, 06/30/21 15:40:00 EDT, [facility]., Partial fill upon patient request if the prescription is for a schedule II opioid drug., 1... Start Date: 06/30/21 Status: Orderedcetirizine 10 mg oral capsule 1 capsule = 10 mg, By Mouth, Daily, setswana label, # 30 capsule, 2 Refills, Maintenance, 06/30/21 15:38:00 EDT, [facility], Partial fill upon patient request if the prescription is for a schedule II opioid drug., 165, cm, 06/30/21 14:5... Start Date: 06/30/21 Status: Ordereddiclofenac 1% topical gel 1 application, Topically, 4 times a day, PRN Pain , Mild, # 100 Gm, 1 Refills, Maintenance, 09/19/2116:49:00 EDT, Gel, [facility]/pharmacy #[id number], Partial fill upon patient request if the prescription is for a schedule II opioid drug., 165, cm, 09/19/20 17:2... Start Date: 09/19/20 Status: OrderedFlonase 50 mcg/inh nasal spray 1 sprays, Nares, Both, 2 times a day, in each nostril, # 15.8 mL, 1 Refills, Maintenance, 06/30/21 15:36:00 EDT, [place], [facility], Partial fill upon patient request if the prescriptionis for a schedule II opioid drug., 1 sprays Nares... Start Date: 06/30/21 Status: Orderedolmesartan 5 mg oral tablet 1 tablet = 5 mg, By Mouth, Daily, LABEL IN MICRONESIAN, # 30 tablet, 11 Refills, Maintenance, 01/15/22 15:33:00 EST, Tablet, [facility]., d/c nifedipine, 165, cm, 11/19/21 15:39:00 EDT, Height, 101, kg, 08/22/20 22:45:00 EDT, Dry Weight Start Date: 01/15/22 Status: Orderedsertraline 50 mg oral tablet 1 tablet = 50 mg, By Mouth, Daily, setswana, # 30 tablet, 11 Refills, Maintenance, 12/05/20 12:40:00 EDT, Tablet, [facility]/pharmacy #[id number], Partial fill upon patient request if the prescription is for a schedule II opioid drug., 165, nadia, 09/19/20 17:20:00 ED... Start Date: 12/05/20 Status: Orderedspironolactone 25 mg oral tablet 25 mg, 1, tablet, By Mouth, 2 times a day, LABEL IN MICRONESIAN, # 60 tablet, Refills 11, Tot. Refills 11, Maintenance, 01/15/22 15:33:00 EST, Route to Pharmacy Electronically, [facility] d/c nifedipine, 165, cm, 11/19/21 [...] Patient Care team information Care Team PersonnelName: Emil GEORGE, Alia Waller Position: [facility] Primary Care Physician Member Role: PCP Address: Address: [address] [place] [address], C-Level [facility] [place] [address]- Care Team Related PersonsName: JAN DENG Address: [place] [address] [address]
--- OUTSIDE RECORDS SUMMARY | 2022-04-26 01:58 | XMS_ITS | Continuity of Care Document ---
:1990 Author Organization [facility] Address [address] [place] [address]- Care Team Providers Name Role Phone Alia Stein MD Primary Care Physician [place] [facility] [place] 12/12/20 - 01/11/21 [facility] [address] [place] [address]- Attending Physician: Krishna Martinez Admitting Physician: AdmtrKrishna Referring Physician: AdmtrKrishna Allergies, Adverse Reactions, Alerts [...] 09/19/20 17:48:00 EDT, Route to Pharmacy Electronically, [facility]/pharmacy #[id number], Partial fill upon patient request if the prescription is for... Start Date: 09/19/20 Status: OrderedamLODIPine 5 mg oral tablet See Instructions, [facility], # 30 tablet, 1 Refills, [id number], 165, cm,12/12/20 16:24:00 EDT, Height, 101, kg, 08/22/20 22:45:00 EDT, Dry Weight Start Date: 01/03/21 Status: Ordereddiclofenac 1% topical gel 1 application, Topically, 4 times a day, PRN Pain , Mild, # 100 Gm, 1 Refills, Maintenance, 09/19/2116:49:00 EDT, Gel, [facility]/pharmacy #[id number], Partial fill upon patient request if the prescription is for a schedule II opioid drug., 165, cm, 09/19/20 17:2... Start Date: 09/19/20 Status: OrderedFlonase 50 mcg/inh nasal spray 1 sprays, Nares, Both, 2 times a day, in each nostril, # 15.8 mL, 1 Refills, Maintenance, 04/03/20 15:48:00 EST, [place], [facility], Partial fill upon patient request if the prescriptionis for a schedule II opioid drug., 1 sprays Nares... Start Date: 04/03/20 Status: Orderedsertraline 50 mg oral tablet 1 tablet = 50 mg, By Mouth, Daily, dutch, # 30 tablet, 11 Refills, Maintenance, 12/05/20 12:40:00 EDT, Tablet, [facility]/pharmacy #[id number], Partial fill upon patient request if [...]
--- OUTSIDE RECORDS SUMMARY | 2022-04-26 01:58 | XMS_ITS | Continuity of Care Document ---
:1990 Author Organization [facility] Address [address] [place] [address]- Care Team Providers Name Role Phone Emil GEORGE, Alia Waller Primary Care Physician Encounter [facility] Date(s): 09/19/20 - 10/19/20 [facility] [address] [place] [address]- Attending Physician: Krishna Martinez Admitting Physician: Krishna [...] 09/19/20 17:48:00 EDT, Route to Pharmacy Electronically, [facility]/pharmacy #[id number], Partial fill upon patient request if the prescription is for... Start Date: 09/19/20 Status: Ordereddiclofenac 1% topical gel 1 application, Topically, 4 times a day, PRN Pain , Mild, # 100 Gm, 1 Refills, Maintenance, 09/19/2116:49:00 EDT, Gel, [facility]/pharmacy #[id number], Partial fill upon patient request if the prescription is for a schedule II opioid drug., 165, cm, 09/19/20 17:2... Start Date: 09/19/20 Status: OrderedFlonase 50 mcg/inh nasal spray 1 sprays, Nares, Both, 2 times a day, in each nostril, # 15.8 mL, 1 Refills, Maintenance, 04/03/20 15:48:00 EST, [place], [facility] fill upon patient request if the prescriptionis for a schedule II opioid drug., 1 sprays Nares... Start Date: 04/03/20 Status: Orderedhydrochlorothiazide 25 mg oral tablet 25 mg, 1, tablet, By Mouth, Daily, # 30 tablet, Refills 11, Tot. Refills 11, Maintenance, 09/19/20 17:39:00 EDT, Route to Pharmacy Electronically, [facility]/pharmacy #[id number], please d/c amlodipine - patient will stay on HTZD 25 mg daily, 165, cm, 09/19/20 17:... Start Date: 09/19/20 Status: Orderedsertraline 50 mg oral tablet 1 tablet = 50 mg, By Mouth, Daily, 1/2 tab daily x 14 days then 1 tab daily, # 30 tablet, 4 Refills,Maintenance, 09/10/20 9:34:00 EDT, Tablet, [facility]/pharmacy #[id number], Partial fill upon patient request [...]
--- OUTSIDE RECORDS SUMMARY | 2022-04-26 01:58 | XMS_ITS | Continuity of Care Document ---
:1990 Author Organization [facility] Address [address] [place] [address]- Care Team Providers Name Role Phone Emil GEORGE, Alia Waller Primary Care Physician Encounter [facility] Date(s): 08/22/20 - 09/21/20 [facility] [address] [place] [address]- Allergies, Adverse Reactions, Alerts Substance Reaction Severity [...] 09/19/20 17:48:00 EDT, Route to Pharmacy Electronically, [facility]/pharmacy #[id number], Partial fill upon patient request if the prescription is for... Start Date: 09/19/20 Status: Ordereddiclofenac 1% topical gel 1 application, Topically, 4 times a day, PRN Pain , Mild, # 100 Gm, 1 Refills, Maintenance, 09/19/2116:49:00 EDT, Gel, [facility]/pharmacy #[id number], Partial fill upon patient request if the prescription is for a schedule II opioid drug., 165, cm, 09/19/20 17:2... Start Date: 09/19/20 Status: OrderedFlonase 50 mcg/inh nasal spray 1 sprays, Nares, Both, 2 times a day, in each nostril, # 15.8 mL, 1 Refills, Maintenance, 04/03/20 15:48:00 EST, [place], [facility], Partial fill upon patient request if the prescriptionis for a schedule II opioid drug., 1 sprays Nares... Start Date: 04/03/20 Status: Orderedhydrochlorothiazide 25 mg oral tablet 25 mg, 1, tablet, By Mouth, Daily, # 30 tablet, Refills 11, Tot. Refills 11, Maintenance, 09/19/20 17:39:00 EDT, Route to Pharmacy Electronically, [facility]/pharmacy #[id number], please d/c amlodipine - patient will stay on HTZD 25 mg daily, 165, cm, 09/19/20 17:... Start Date: 09/19/20 Status: Orderedsertraline 50 mg oral tablet 1 tablet = 50 mg, By Mouth, Daily, 1/2 tab daily x 14 days then 1 tab daily, # 30 tablet, 4 Refills,Maintenance, 09/10/20 9:34:00 EDT, Tablet, [facility]/pharmacy #[id number], Partial fill upon patient request [...]
--- OUTSIDE RECORDS SUMMARY | 2022-04-26 01:58 | XMS_ITS | Continuity of Care Document ---
:1990 Author Organization [facility] Address [address] [place] [address]- Care Team Providers Name Role Phone Emil GEORGE, Alia Waller Primary Care Physician Encounter [facility] Date(s): 08/22/20 - 09/21/20 [facility] [address] [place] [phone]- Allergies, Adverse Reactions, Alerts Substance Reaction Severity [...] 09/19/20 17:48:00 EDT, Route to Pharmacy Electronically, [facility]/pharmacy #[id number], Partial fill upon patient request if the prescription is for... Start Date: 09/19/20 Status: Ordereddiclofenac 1% topical gel 1 application, Topically, 4 times a day, PRN Pain , Mild, # 100 Gm, 1 Refills, Maintenance, 09/19/2116:49:00 EDT, Gel, [facility]/pharmacy #[id number], Partial fill upon patient request if the prescription is for a schedule II opioid drug., 165, cm, 09/19/20 17:2... Start Date: 09/19/20 Status: OrderedFlonase 50 mcg/inh nasal spray 1 sprays, Nares, Both, 2 times a day, in each nostril, # 15.8 mL, 1 Refills, Maintenance, 04/03/20 15:48:00 EST, [place], [facility], Partial fill upon patient request if the prescriptionis for a schedule II opioid drug., 1 sprays Nares... Start Date: 04/03/20 Status: Orderedhydrochlorothiazide 25 mg oral tablet 25 mg, 1, tablet, By Mouth, Daily, # 30 tablet, Refills 11, Tot. Refills 11, Maintenance, 09/19/20 17:39:00 EDT, Route to Pharmacy Electronically, [facility]/pharmacy #[id number], please d/c amlodipine - patient will stay on HTZD 25 mg daily, 165, cm, 09/19/20 17:... Start Date: 09/19/20 Status: Orderedsertraline 50 mg oral tablet 1 tablet = 50 mg, By Mouth, Daily, 1/2 tab daily x 14 days then 1 tab daily, # 30 tablet, 4 Refills,Maintenance, 09/10/20 9:34:00 EDT, Tablet, [facility]/pharmacy #[id number], Partial fill upon patient [...]
--- OUTSIDE RECORDS SUMMARY | 2022-04-26 01:58 | XMS_ITS | Continuity of Care Document ---
:1990 Author Organization [facility] Address [address] [place] [address]- Care Team Providers Name Role Phone Alia Stein MD Primary Care Physician Encounter [facility] Date(s): 09/16/21 - 11/13/21 [facility] [address] [place] [address]- Attending Physician: David Causey MD Admitting Physician: David Causey MD Allergies, Adverse Reactions, Alerts Substance Reaction [...] 09/19/20 17:48:00 EDT, Route to Pharmacy Electronically, [facility]/pharmacy #[id number], Partial fill upon patient request if the prescription is for... Start Date: 09/19/20 Status: Orderedazelastine 0.05% ophthalmic solution 1 drops, Eyes, Both, 2 times a day, PRN for allergy symptoms, vietnamese label, # 6 mL, 2 Refills, Maintenance, 06/30/21 15:40:00 EDT[facility] upon patient request if the prescription is for a schedule II opioid drug., 1... Start Date: 06/30/21 Status: Orderedcetirizine 10 mg oral capsule 1 capsule = 10 mg, By Mouth, Daily, vietnamese label, # 30 capsule, 2 Refills, Maintenance, 06/30/21 15:38:00 EDT, [facility], Partial fill upon patient request if the prescription is for a schedule II opioid drug., 165, nadia, 06/30/21 14:5... Start Date: 06/30/21 Status: Ordereddiclofenac 1% topical gel 1 application, Topically, 4 times a day, PRN Pain , Mild, # 100 Gm, 1 Refills, Maintenance, 09/19/2116:49:00 EDT, [id number] Partial fill upon patient request if the prescription is for a schedule II opioid drug., 165, nadia, 09/19/20 17:2... Start Date: 09/19/20 Status: OrderedFlonase 50 mcg/inh nasal spray 1 sprays, Nares, Both, 2 times a day, in each nostril, # 15.8 mL, 1 Refills, Maintenance, 06/30/21 15:36:00 EDT, [place], [facility], Partial fill upon patient request if the prescriptionis for a schedule II opioid drug., 1 sprays Nares... Start Date: 06/30/21 Status: Orderedolmesartan 5 mg oral tablet 1 tablet = 5 mg, By Mouth, Daily, vietnamese, # 30 tablet, 4 Refills, Maintenance, 09/11/21 11:29:00 EDT, Tablet, [facility]., d/c nifedipine, 165, cm, 09/11/21 11:28:00 EDT, Height, 101, kg, 08/22/20 22:45:00 EDT, Dry Weight Start Date: 09/11/21 Status: Orderedsertraline 50 mg oral tablet 1 tablet = 50 mg, By Mouth, Daily, vietnamese, # 30 tablet, 11 Refills, Maintenance, 12/05/20 12:40:00 EDT, Tablet, [facility]/pharmacy #[id number], Partial fill upon patient request if the prescription is for a schedule II opioid drug., 165nadia, 09/19/20 17:20:00 ED... Start Date: 12/05/20 Status: Orderedspironolactone 25 mg oral tablet 25 mg, 1, tablet, By Mouth, 2 times a day, vietnamese, # 60 tablet, Refills 4, Tot. Refills 4, Maintenance, 09/11/21 11:28:00 EDT, Route to Pharmacy Electronically, [facility]., d/c nifedipine, 165, cm, 09/11/21 11:28:00 EDT, [...] Sex Female Patient Care team information PersonnelName: Alia Stein MD Address: Address: [address] [place] [address], -Level [facility] [place], [place] [address]
--- OUTSIDE RECORDS SUMMARY | 2022-04-26 01:58 | XMS_ITS | Continuity of Care Document ---
:[address] [facility] Address [address] [place] [phone]- Care Team Providers Name Role Phone Alia Stein MD Primary Care Physician [place] [facility]/14/20 - 12/20/[address] [address] Attending Physician: Alia Stein MD Admitting Physician: Alia Stein MD Referring Physician: Alia Stein MD Allergies, Adverse Reactions, [...] 09/19/20 17:48:00 EDT, Route to Pharmacy Electronically, [facility]/pharmacy #[id number], Partial fill upon patient request [...] mL, 1 Refills, Maintenance, 04/03/20 15:48:00 EST, [place], Partial fill upon patient request if the prescriptionis for a schedule II opioid drug., 1 sprays Nares... Start Date: 04/03/20 Status: Orderedsertraline 50 mg oral tablet 1 tablet = 50 mg, By Mouth, Daily, pakistani, # 30 tablet, 11 Refills, Maintenance, 12/05/20 12:40:00 EDT, Tablet, [facility]/pharmacy #[id number], Partial fill upon patient request [...]
--- OUTSIDE RECORDS SUMMARY | 2022-04-26 01:58 | XMS_ITS | Continuity of Care Document ---
:1990 Author Organization [facility] Address [address] [place] [address]- Care Team Providers Name Role Phone Alia Stein MD Primary Care Physician Encounter [facility] Date(s): 08/22/20 - 08/22/[address] [address]- Discharge Disposition: A-D/C Home Attending Physician: Dasia Elizabeth MD Admitting Physician: Dasia Elizabeth MD Referring Physician: Not on Staff, Referring MD Allergies, Adverse Reactions, Alerts Substance Reaction Severity Status penicillin rash Active Seafood Active Immunizations Given and Recorded Vaccine Date Status Refusal Reason influenza virus vaccine, inactivated 03/05/17 Given Medications Flonase 50 mcg/inh nasal spray 1 sprays, Nares, Both, 2 times a day, in each nostril, # 15.8 mL, 1 Refills, Maintenance, 04/03/20 15:48:00 EST, [place] fill upon patient request if the prescriptionis for a schedule II opioid drug., 1 sprays Nares... Start Date: 04/03/20 Status: Orderedhydrochlorothiazide 25 mg oral tablet 25 mg, 1, tablet, By Mouth, Daily, STOP chlorthalidone, # 30 tablet, Refills 3, Tot. Refills 3, Maintenance, 08/13/20 16:30:00 EDT, Route to Pharmacy Electronically, [facility]/pharmacy #[id number], TO REPLACE CHLORTHALIDONE, 165, cm, 08/13/20 16:10:00 EDT, Height Start Date: 08/13/20 Status: OrderedLexapro 10 mg oral tablet 1 tablet = 10 mg, By Mouth, Daily, # 30 tablet, 3 Refills, Maintenance, 06/17/20 15:43:00 EDT, Tablet, [facility] fill upon patient request if [...] Hx of tubal ligation(Confirmed) Active Obesity(Confirmed) Active Vital Signs Most recent to oldest 1 2 3 [Reference Range]: Weight 101 kg 101 kg (08/22/20 10:45 PM) (08/22/20 1:26 PM) Oxygen Saturation [94-100 %] 98 % 100 % 99 % (08/22/20 10:45 PM) (08/22/20 1:26 PM) (08/22/20 12 :50 PM) Pulse Rate [55-90 bpm] 78 bpm 98 bpm 81 bpm (08/22/20 10:45 PM) *H* (08/22/20 12:5 0 PM) (08/22/20 1:26 PM) Blood Pressure [90-138/55-84 150/100 mm Hg 153/95 mm Hg mm Hg] *H* *H* (08/22/20 10:45 PM) (08/22/20 1:26 PM) Respiratory Rate [16-30 26 br/min 18 br/min br/min] (08/22/20 10:45 PM) (08/22/20 1:26 PM) Temperature [96.8-100.4 DegF] 98.7 DegF 98.8 DegF (08/22/20 10:45 PM) (08/22/20 1:26 PM) Mode of Delivery (Oxygen) Room air Room air Room a ir (08/22/20 10:45 PM) (08/22/20 1:26 PM) (08/22/20 12 :50 PM) Blood pressure sites Arm, left Arm, left (08/22/20 10:45 PM) (08/22/20 1:26 PM) Temperature Route Oral Oral (08/22/20 10:45 PM) (08/22/20 1:26 PM) Dry Weight 101 kg 101 kg (08/22/20 10:45 PM) (08/22/20 1:26 PM) Social History Social History Type Response Smoking Status Never smoker entered on: 03/05/17 Sex Female
--- OUTSIDE RECORDS SUMMARY | 2022-04-26 01:59 | XMS_ITS | Continuity of Care Document ---
:1990 Author Organization [facility] Address [address] [place] [phone]- Care Team Providers Name Role Phone Alia Stein MD Primary Care Physician [place] [facility] [place] 04[place]19 - 05/04/19 [facility] [address] [place] [phone]- [place] Encounter Diagnosis Pain, dental (Discharge Diagnosis) - 04/27/19 Attending Physician: Alia Stein MD Admitting Physician: David Causey MD Allergies, Adverse Reactions, Alerts No Known Medication Allergies Immunizations Given and Recorded Vaccine Date Status Refusal Reason influenza virus vaccine, inactivated 03/05/17 Given Medications acetaminophen 325 mg oral tablet 650 mg, 2, tablet, By Mouth, 3 times a day, PRN, # 180 tablet, Refills 0, Tot. Refills 0, Maintenance, for pain, 04/27/19 14:06:00 EDT, Route to Pharmacy Electronically, [facility]/pharmacy #[id number], 165, cm, 01/23/19 14:22:00 EST, Height, 101.7, kg, 01/11/18 2... Start Date: 04/27/19 Status: Orderedacetaminophen 325 mg oral tablet 650 mg, 2, tablet, By Mouth, 3 times a day, PRN, # 180 tablet, Refills 11, Tot. Refills 11, Maintenance, for pain, 01/28/18 15:32:45 EST, Route to Pharmacy Electronically, [id number], [facility]/pharmacy #[id number] Start Date: 12/21/18 Status: Orderedbenzoyl peroxide 10% topical cream See Instructions, apply a small amount to affected areas daily at bedtime. Burmese label please., # 30 Gm, 0 Refills, Maintenance, 01/16/19 14:31:15 EST, apply a small amount to affected areas daily atbedtime. Burmese label please., 165, cm, 01/16/19... Start Date: 01/16/19 Status: OrderedBlood Pressure Monitor See Instructions, # 1 units, Maintenance, Measure blood pressure daily, 12/22/18 14:01:19 EST, Instructions in Burmese, Compound Start Date: 12/22/18 Status: OrderedNaprosyn 500 [...] Refills, Maintenance, 12/22/18 13:58:18EST, Tablet, Instructions in Burmese Start Date: 12/22/18 Status: Orderedtriamcinolone 0.025% topical cream 1 application, Topically, 3 times a day, PRN itching, dominican, # 60 Gm, 0 Refills, Maintenance, 01/09/19 11:59:38 EST, Cream, 1 application Topically 3 times a day,PRN:itching,Instr:dominican Start Date: 01/09/19 Status: Ordered Problem List Condition Effective Dates Status Health Status Informant 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
--- OUTSIDE RECORDS SUMMARY | 2022-04-26 01:59 | XMS_ITS | Continuity of Care Document ---
:1990 Author Organization [facility] Address [address] [place] [address]- Care Team Providers Name Role Phone Emil GEORGE, Alia Waller Primary Care Physician Encounter [facility] Date(s): 06/14/20 - 07/14/20 [facility] [address] [place] [address]- Allergies, Adverse Reactions, Alerts Substance Reaction Severity Status penicillin rash Active Immunizations Given and Recorded Vaccine Date Status Refusal Reason influenza virus vaccine, inactivated 03/05/17 Given Medications Flonase 50 mcg/inh nasal spray 1 sprays, Nares, Both, 2 times a day, in each nostril, # 15.8 mL, 1 Refills, Maintenance, 04/03/20 15:48:00 EST, [place] Partial fill upon patient request if the prescriptionis for a schedule II opioid drug., 1 sprays Nares... Start Date: 04/03/20 Status: OrderedLexapro 10 mg oral tablet 1 tablet = 10 mg, By Mouth, Daily, # 30 tablet, 3 Refills, Maintenance, 06/17/20 15:43:00 EDT, Tablet, [facility] Partial fill upon patient request [...]
--- OUTSIDE RECORDS SUMMARY | 2022-04-26 01:59 | XMS_ITS | Continuity of Care Document ---
:[address] [facility] Address [address] [place] [phone]- Care Team Providers Name Role Phone Alia Stein MD Primary Care Physician Encounter [facility] Date(s): 12/29/19 - 01/28/20 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
--- OUTSIDE RECORDS SUMMARY | 2022-04-26 01:59 | XMS_ITS | Continuity of Care Document ---
:1990 Author Organization [facility] Address [address] [place] [phone]- Care Team Providers Name Role Phone Alia Stein MD Primary Care Physician [place] [facility] [place](s): 06/30/21 - 07/30/21 [facility] [address] [place] [id number] Allergies, Adverse Reactions, Alerts Substance Reaction Severity [...] 09/19/20 17:48:00 EDT, Route to Pharmacy Electronically, [facility]/pharmacy #[id number], Partial fill upon patient request if the prescription is for... Start Date: 09/19/20 Status: OrderedAtivan 0.5 mg oral tablet 1 tablet = 0.5 mg, By Mouth, 2 times a day, PRN as needed for anxiety, for 3 days, # 6 tablet, 0 Refills, Acute 07/31/21 12:15:00 EDT, 07/28/21 12:15:00 EDT, Tablet, [facility]., Partialfill upon patient request if the prescription is... Start Date: 07/28/21 Stop Date: 07/31/21 Status: Orderedazelastine 0.05% ophthalmic solution 1 drops, Eyes, Both, 2 times a day, PRN for allergy symptoms, macedonian label, # 6 mL, 2 Refills, Maintenance, 06/30/21 15:40:00 EDT, [facility]., Partial fill upon patient request if the prescription is for a schedule II opioid drug., 1... Start Date: 06/30/21 Status: Orderedcetirizine 10 mg oral capsule 1 capsule = 10 mg, By Mouth, Daily, macedonian label, # 30 capsule, 2 Refills, Maintenance, 06/30/21 15:38:00 EDT, [facility]., Partial fill upon patient request if the prescription is for a schedule II opioid drug., nadia [place], 06/30/21 14:5... Start Date: 06/30/21 Status: Orderedclindamycin 150 mg oral capsule 1 capsule = 150 mg, By Mouth, Every 6 hours, for 7 days, # 28 capsule, 0 Refills, Acute 08/04/21 12:19:00 EDT, 07/28/21 12:19:00 EDT, Capsule, [facility], Partial fill upon patient request if the prescription is for a schedule II opioi... Start Date: 07/28/21 Stop Date: 08/04/21 Status: Ordereddiclofenac 1% topical gel 1 application, Topically, 4 times a day, PRN Pain , Mild, # 100 Gm, 1 Refills, Maintenance, 09/19/2116:49:00 EDT, Gel, [facility]/pharmacy #[id number], Partial fill upon patient request if the prescription is for a schedule II opioid drug., nadia [place], 09/19/20 17:2... Start Date: 09/19/20 Status: OrderedFlonase 50 mcg/inh nasal spray 1 sprays, Nares, Both, 2 times a day, in each nostril, # 15.8 mL, 1 Refills, Maintenance, 06/30/21 15:36:00 EDT, [place], [facility]., Partial fill upon patient request if the prescriptionis for a schedule II opioid drug., 1 sprays Nares... Start Date: 06/30/21 Status: OrderedNIFEdipine 60 mg oral tablet, extended release 60 mg, 1, tablet, By Mouth, Daily, # 30 tablet, Refills 2, Tot. Refills 2, Maintenance, 07/28/21 15:38:00 EDT, Route to Pharmacy Electronically, [facility], Partial fill upon patient request if the prescription is for a schedule II opi... Start Date: 07/28/21 Status: Orderedsertraline 50 mg oral tablet 1 tablet = 50 mg, By Mouth, Daily, macedonian, # 30 tablet, 11 Refills, Maintenance, 12/05/20 12:40:00 EDT, Tablet, [facility]/pharmacy #[id number], Partial fill upon patient request [...]
--- OUTSIDE RECORDS SUMMARY | 2022-04-26 01:59 | XMS_ITS | Continuity of Care Document ---
:1990 Author Organization [facility] Address [address] [place] [phone]- Care Team Providers Name Role Phone Alia Stein MD Primary Care Physician [facility]counter [facility] Date(s): 12/22/18 - 02/12/19 [facility] [address] [place] [phone]- [facility] Attending Physician: Alia Stein MD Admitting Physician: Alia Stein MD Allergies, Adverse Reactions, Alerts No Known Medication Allergies Immunizations Given and Recorded Vaccine Date Status Refusal Reason influenza virus vaccine, inactivated 03/05/17 Given Medications acetaminophen 325 mg oral tablet 650 mg, 2, tablet, By Mouth, 3 times a day, PRN, # 180 tablet, Refills 11, Tot. Refills 11, Maintenance, for pain, 01/28/18 15:32:45 EST, Route to Pharmacy Electronically, [id number], [facility]/pharmacy #[id number] Start Date: 01/28/18 Status: Orderedbenzoyl peroxide 10% topical cream See Instructions, apply a small amount to affected areas daily at bedtime. Botswanan label please., # 30 Gm, 0 Refills, Maintenance, 01/16/19 14:31:15 EST, apply a small amount to affected areas daily atbedtime. Botswanan label please., 165, cm, 01/16/19... Start Date: 01/16/19 Status: OrderedBlood Pressure Monitor See Instructions, # 1 units, Maintenance, Measure blood pressure daily, 12/22/18 14:01:19 EST, Instructions in Botswanan, Compound Start Date: 12/22/18 Status: OrderedNaprosyn 500 [...] Refills, Maintenance, 12/22/18 13:58:18EST, Tablet, Instructions in Botswanan Start Date: 12/22/18 Status: Orderedtriamcinolone 0.025% topical cream 1 application, Topically, 3 times a day, PRN itching, barbadian, # 60 Gm, 0 Refills, Maintenance, 01/09/19 11:59:38 EST, Cream, 1 application Topically 3 times a day,PRN:itching,Instr:barbadian Start Date: 01/09/19 Status: Ordered Problem List Condition Effective Dates Status Health Status Informant 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
--- OUTSIDE RECORDS SUMMARY | 2022-04-26 01:59 | XMS_ITS | Continuity of Care Document ---
:1990 Author Organization [facility] Address [address] [place] [phone]- Care Team Providers Name Role Phone Alia Stein MD Primary Care Physician Encounter [facility] Date(s): 05/13/20 - 06/12/20 [facility] [address] [place] [id number] Attending Physician: Krishna Martinez Admitting Physician: AdmKrishna donis Referring Physician: AdmtrKrishna Allergies, Adverse Reactions, Alerts Substance Reaction Severity Status penicillin rash Active Immunizations Given and Recorded Vaccine Date Status Refusal Reason influenza virus vaccine, inactivated 03/05/17 Given Medications Flonase 50 mcg/inh nasal spray 1 sprays, Nares, Both, 2 times a day, in each nostril, # 15.8 mL, 1 Refills, Maintenance, 04/03/20 15:48:00 EST, [place], [facility], Partial fill upon patient request if the prescriptionis for a schedule II opioid drug., 1 sprays Nares... 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
--- OUTSIDE RECORDS SUMMARY | 2022-04-26 01:59 | XMS_ITS | Continuity of Care Document ---
:1988 Author Organization [facility] Address [address] [place] [phone]- Care Team Providers Name Role Phone Emil GEORGE, Alia Waller Primary Care Physician Encounter [facility] Date(s): 02/10/22 - 03/12/22 [facility] [address] [place] [phone]- Attending Physician: Krishna Martinez Admitting Physician: Krishna [...] 09/19/20 17:48:00 EDT, Route to Pharmacy Electronically, [facility]/pharmacy #[id number], Partial fill upon patient request if the prescription is for... Start Date: 09/19/20 Status: Orderedazelastine 0.05% ophthalmic solution 1 drops, Eyes, Both, 2 times a day, PRN for allergy symptoms, wallisian label, # 6 mL, 2 Refills, Maintenance, 06/30/21 15:40:00 EDT, [facility] Partial fill upon patient request if the prescription is for a schedule II opioid drug., 1... Start Date: 06/30/21 Status: Orderedcetirizine 10 mg oral capsule 1 capsule = 10 mg, By Mouth, Daily, wallisian label, # 30 capsule, 2 Refills, Maintenance, 06/30/21 15:38:00 EDT, [facility], Partial fill upon patient request if the prescription is for a schedule II opioid drug., 165, cm, 06/30/21 14:5... Start Date: 06/30/21 Status: Ordereddiclofenac 1% topical gel 1 application, Topically, 4 times a day, PRN Pain , Mild, # 100 Gm, 1 Refills, Maintenance, 09/19/2116:49:00 EDT, Gel, [facility]/pharmacy #[id number], Partial fill upon patient request if the prescription is for a schedule II opioid drug., 165, cm, 09/19/20 17:2... Start Date: 09/19/20 Status: OrderedFlonase 50 mcg/inh nasal spray 1 sprays, Nares, Both, 2 times a day, in each nostril, # 15.8 mL, 1 Refills, Maintenance, 06/30/21 15:36:00 EDT, [place], [facility], Partial fill upon patient request if the prescriptionis for a schedule II opioid drug., 1 sprays Nares... Start Date: 06/30/21 Status: Orderedolmesartan 5 mg oral tablet 1 tablet = 5 mg, By Mouth, Daily, LABEL IN YORUBA, # 30 tablet, 11 Refills, Maintenance, 01/15/22 15:33:00 EST, Tablet, [facility]., d/c nifedipine, 165, cm, 11/19/21 15:39:00 EDT, Height, 101, kg, 08/22/20 22:45:00 EDT, Dry Weight Start Date: 01/15/22 Status: Orderedsertraline 50 mg oral tablet 1 tablet = 50 mg, By Mouth, Daily, wallisian, # 30 tablet, 11 Refills, Maintenance, 12/05/20 12:40:00 EDT, Tablet, [facility]/pharmacy #[id number], Partial fill upon patient request if the prescription is for a schedule II opioid drug., 165, cm, 09/19/20 17:20:00 ED... Start Date: 12/05/20 Status: Orderedspironolactone 25 mg oral tablet 25 mg, 1, tablet, By Mouth, 2 times a day, LABEL IN YORUBA, # 60 tablet, Refills 11, Tot. Refills 11, Maintenance, 01/15/22 15:33:00 EST, [facility]ed[facility], 165, cm, 11/19/21 15:39:00 EDT, [...] Care Team PersonnelName: Alia Stein MD Position: S Primary Care Physician Member Role: PCP Address: Address: [address] [place] [address], C-Level [facility] [place] [address]- Care Team Related PersonsName: JAN DENG Address: [address] [address]
--- OUTSIDE RECORDS SUMMARY | 2022-04-26 01:59 | XMS_ITS | Continuity of Care Document ---
:1990 Author Organization [facility] Address [address] [place] [phone]- Care Team Providers Name Role Phone Alia Stein MD Primary Care Physician Encounter [facility] [place] Date(s): 09/03/20 - 10/10/20 [facility] [address] [place] [phone]- Attending Physician: Alia Stein MD Admitting Physician: [...] 09/19/20 17:48:00 EDT, Route to Pharmacy Electronically, [facility]/pharmacy #[id number], Partial fill upon patient request [...] mL, 1 Refills, Maintenance, 04/03/20 15:48:00 EST, [place] upon patient request if the prescriptionis for a schedule II opioid drug., 1 sprays Nares... Start Date: 04/03/20 Status: Orderedhydrochlorothiazide 25 mg oral tablet 25 mg, 1, tablet, By Mouth, Daily, # 30 tablet, Refills 11, Tot. Refills 11, Maintenance, 09/19/20 17:39:00 EDT, Route to Pharmacy Electronically, [facility]/pharmacy #[id number], please d/c amlodipine - patient will stay on HTZD 25 mg daily, 165, cm, 09/19/20 17:... Start Date: 09/19/20 Status: Orderedsertraline 50 mg oral tablet 1 tablet = 50 mg, By Mouth, Daily, 1/2 tab daily x 14 days then 1 tab daily, # 30 tablet, 4 Refills,Maintenance, 09/10/20 9:34:00 EDT, Tablet, [facility]/pharmacy #[id number], Partial fill upon patient request [...]
--- OUTSIDE RECORDS SUMMARY | 2022-04-26 01:59 | XMS_ITS | Continuity of Care Document ---
:1990 Author Organization [facility] Address [address] [place] [address]- Care Team Providers Name Role Phone Alia Stein MD Primary Care Physician [place] [facility] [place] Date(s): 08/13/20 - 09/12/20 [facility] [address] [place] [phone]- Allergies, Adverse Reactions, Alerts Substance Reaction Severity Status penicillin rash Active Seafood Active hydroCHLOROthiazide dizziness Active Immunizations Given and Recorded Vaccine Date Status Refusal Reason influenza virus vaccine, inactivated 03/05/17 Given Medications amLODIPine 5 mg oral tablet 1 tablet = 5 mg, By Mouth, Daily at bedtime, for HTN, luxembourger, # 30 tablet, 4 Refills, Maintenance, 09/10/20 9:17:00 EDT, Tablet, [facility]/pharmacy #[id number], d/c HCTZ, d/c chlorthaladone, 165, cm, 08/13/20 16:10:00 EDT, Height, 101, kg, 08/22/20 22:45:00 EDT,... Start Date: 09/10/20 Status: OrderedFlonase 50 mcg/inh nasal spray 1 sprays, Nares, Both, 2 times a day, in each nostril, # 15.8 mL, 1 Refills, Maintenance, 04/03/20 15:48:00 EST, [place], [facility], Partial fill upon patient request if the prescriptionis for a schedule II opioid drug., 1 sprays Nares... Start Date: 04/03/20 Status: Orderedsertraline 50 mg oral tablet 1 tablet = 50 mg, By Mouth, Daily, 1/2 tab daily x 14 days then 1 tab daily, # 30 tablet, 4 Refills,Maintenance, 09/10/20 9:34:00 EDT, Tablet, [facility]acy #[id number], Partial fill upon patient request if the prescription is for a schedule II opioid drug.... 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
--- OUTSIDE RECORDS SUMMARY | 2022-04-26 01:59 | XMS_ITS | Continuity of Care Document ---
:1990 Author Organization [facility] Address [address] [place] [phone]- Care Team Providers Name Role Phone Alia Stein MD Primary Care Physician Encounter [facility] Date(s): 01/09/19 - 02/08/19 [facility] [address] [place] [phone]- [facility] Attending Physician: Alia Stein MD Admitting Physician: [...] 01/28/18 15:32:45 EST, Route to Pharmacy Electronically, [id number], [facility]/pharmacy #[id number] Start Date: 01/28/18 Status: Orderedbenzoyl peroxide 10% topical cream See Instructions, apply a small amount to affected areas daily at bedtime. Australian label please., # 30 Gm, 0 Refills, Maintenance, 01/16/19 14:31:15 EST, apply a small amount to affected areas daily atbedtime. Australian label please., 165, cm, 01/16/19... Start Date: 01/16/19 Status: OrderedBlood Pressure Monitor See Instructions, # 1 units, Maintenance, Measure blood pressure daily, 12/22/18 14:01:19 EST, Instructions in Australian, Compound Start Date: 12/22/18 Status: OrderedNaprosyn 500 [...] Refills, Maintenance, 12/22/18 13:58:18EST, Tablet, Instructions in Australian Start Date: 12/22/18 Status: Orderedtriamcinolone 0.025% topical cream 1 application, Topically, 3 times a day, PRN itching, malawian, # 60 Gm, 0 Refills, Maintenance, 01/09/19 11:59:38 EST, Cream, 1 application Topically 3 times a day,PRN:itching,Instr:malawian Start Date: 01/09/19 Status: Ordered Problem List Condition Effective Dates Status Health Status Informant 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
--- OUTSIDE RECORDS SUMMARY | 2022-04-26 01:59 | XMS_ITS | Continuity of Care Document ---
:1990 Author Organization [facility] Address [address] [place] [phone]- Care Team Providers Name Role Phone Emil GEORGE, Alia Waller Primary Care Physician Encounter [facility] [place] Date(s): 03/02/19 - 03/12/19 [facility] [address] [place] [address]- [facility] Attending Physician: Krishna Martinez Admitting Physician: Krishna Martinez Referring Physician: AdmtrKrishna Allergies, Adverse Reactions, Alerts No Known Medication Allergies Immunizations Given and Recorded Vaccine Date Status Refusal Reason influenza virus vaccine, inactivated 03/05/17 Given Medications acetaminophen 325 mg oral tablet 650 mg, 2, tablet, By Mouth, 3 times a day, PRN, # 180 tablet, Refills 11, Tot. Refills 11, Maintenance, for pain, 01/28/18 15:32:45 EST, Route to Pharmacy Electronically, [id number], [facility]/pharmacy #[id number] Start Date: 01/28/18 Status: Orderedbenzoyl peroxide 10% topical cream See Instructions, apply a small amount to affected areas daily at bedtime. Hungarian label please., # 30 Gm, 0 Refills, Maintenance, 01/16/19 14:31:15 EST, apply a small amount to affected areas daily atbedtime. Hungarian label please., 165, cm, 01/16/19... Start Date: 01/16/19 Status: OrderedBlood Pressure Monitor See Instructions, # 1 units, Maintenance, Measure blood pressure daily, 12/22/18 14:01:19 EST, Instructions in Hungarian, Compound Start Date: 12/22/18 Status: OrderedNaprosyn 500 [...] Refills, Maintenance, 12/22/18 13:58:18EST, Tablet, Instructions in Hungarian Start Date: 12/22/18 Status: Orderedtriamcinolone 0.025% topical cream 1 application, Topically, 3 times a day, PRN itching, slovak, # 60 Gm, 0 Refills, Maintenance, 01/09/19 11:59:38 EST, Cream, 1 application Topically 3 times a day,PRN:itching,Instr:slovak Start Date: 01/09/19 Status: Ordered Problem List Condition Effective Dates Status Health Status Informant 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
--- OUTSIDE RECORDS SUMMARY | 2022-04-26 01:59 | XMS_ITS | Continuity of Care Document ---
:1990 Author Organization [facility] Address [address] [place] [phone]- Care Team Providers Name Role Phone Alia Stein MD Primary Care Physician Encounter [facility] [place] Date(s): 02/02/19 - 04/01/19 [facility] [address] [place] [address]- [facility] Attending Physician: Alia Stein MD Admitting Physician: [...] 01/28/18 15:32:45 EST, Route to Pharmacy Electronically, [id number], [facility]/pharmacy #[id number] Start Date: 01/28/18 Status: Orderedbenzoyl peroxide 10% topical cream See Instructions, apply a small amount to affected areas daily at bedtime. Czech label please., # 30 Gm, 0 Refills, Maintenance, 01/16/19 14:31:15 EST, apply a small amount to affected areas daily atbedtime. Czech label please., 165, cm, 01/16/19... Start Date: 01/16/19 Status: OrderedBlood Pressure Monitor See Instructions, # 1 units, Maintenance, Measure blood pressure daily, 12/22/18 14:01:19 EST, Instructions in Czech, Compound Start Date: 12/22/18 Status: OrderedNaprosyn 500 [...] Refills, Maintenance, 12/22/18 13:58:18EST, Tablet, Instructions in Czech Start Date: 12/22/18 Status: Orderedtriamcinolone 0.025% topical cream 1 application, Topically, 3 times a day, PRN itching, bermudian, # 60 Gm, 0 Refills, Maintenance, 01/09/19 11:59:38 EST, Cream, 1 application Topically 3 times a day,PRN:itching,Instr:bermudian Start Date: 01/09/19 Status: Ordered Problem List Condition Effective Dates Status Health Status Informant 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
--- OUTSIDE RECORDS SUMMARY | 2022-04-26 01:59 | XMS_ITS | Continuity of Care Document ---
:1990 Author Organization [facility] Address [address] [place] [phone]- Care Team Providers Name Role Phone Alia Stein MD Primary Care Physician [place] [facility] [place] 04/29/20 - 06/12/20 [facility] [address] [place] [id number] Attending Physician: David Causey MD Admitting Physician: David Causey MD Allergies, Adverse Reactions, Alerts Substance Reaction Severity Status penicillin rash Active Immunizations Given and Recorded Vaccine Date Status Refusal Reason influenza virus vaccine, inactivated 03/05/17 Given Medications Flonase 50 mcg/inh nasal spray 1 sprays, Nares, Both, 2 times a day, in each nostril, # 15.8 mL, 1 Refills, Maintenance, 04/03/20 15:48:00 EST, [place] upon patient request [...]
--- OUTSIDE RECORDS SUMMARY | 2022-04-26 01:59 | XMS_ITS | Continuity of Care Document ---
:1990 Author Organization [facility] Address [address] [place] [address]- Care Team Providers Name Role Phone Emil GEORGE, Alia Waller Primary Care Physician Encounter [facility] Date(s): 01/16/19 - 01/16/19 [facility] [address] [place] [phone]- [facility] Discharge Disposition: A-D/C Home Attending Physician: Mian Velez Admitting Physician: Not on Staff, Admitting MD Referring Physician: Not on Staff, Referring MD Allergies, Adverse Reactions, Alerts No Known Medication Allergies Immunizations Given and Recorded Vaccine Date Status Refusal Reason influenza virus vaccine, inactivated 03/05/17 Given Medications acetaminophen 325 mg oral tablet 650 mg, 2, tablet, By Mouth, 3 times a day, PRN, # 180 tablet, Refills 11, Tot. Refills 11, Maintenance, for pain, 01/28/18 15:32:45 EST, Route to Pharmacy Electronically, [id number], [facility]/pharmacy #[id number] Start Date: 01/28/18 Status: Orderedbenzoyl peroxide 10% topical cream See Instructions, apply a small amount to affected areas daily at bedtime. Monegasque label please., # 30 Gm, 0 Refills, Maintenance, 01/16/19 14:31:15 EST, apply a small amount to affected areas daily atbedtime. Monegasque label please., 165, cm, 01/16/19... Start Date: 01/16/19 Status: OrderedBlood Pressure Monitor See Instructions, # 1 units, Maintenance, Measure blood pressure daily, 12/22/18 14:01:19 EST, Instructions in Monegasque, Compound Start Date: 12/22/18 Status: OrderedNaprosyn 500 mg oral tablet 1 tablet = 500 mg, By Mouth, 2 times a day, PRN Pain , Mild, # 60 tablet, 2 Refills, Maintenance, 01/28/18 15:35:35 EST, Tablet Start Date: 01/28/18 Status: Orderedpermethrin 5% topical cream 1 application, Topically, Once, # 60 Gm, 0 Refills, Soft Stop, 01/09/19 11:55:05 EST, Cream, 1 application Topically Once Start Date: 01/09/19 Status: Orderedsertraline 25 mg oral tablet 1 tablet = 25 mg, By Mouth, Daily at bedtime, # 30 tablet, 2 Refills, Maintenance, 12/22/18 13:58:18EST, Tablet, Instructions in Monegasque Start Date: 12/22/18 Status: Orderedtriamcinolone 0.025% topical cream 1 application, Topically, 3 times a day, PRN itching, burmese, # 60 Gm, 0 Refills, Maintenance, 01/09/19 11:59:38 EST, Cream, 1 application Topically 3 times a day,PRN:itching,Instr:burmese Start Date: 01/09/19 Status: Ordered Problem List Condition Effective Dates Status Health Status Informant 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) Depression(Confirmed) Active Breast changes, fibrocystic(Confirmed) Active History of panic attacks(Confirmed) Active Hx of tubal ligation(Confirmed) Active Obesity(Confirmed) Active Vital Signs Most recent to oldest [Reference Range]: 1 Height 165 cm (01/16/19 2:18 PM) Weight 101.3 kg (01/16/19 2:18 PM) Pulse Rate [55-90 bpm] 91 bpm *H* (01/16/19 2:18 PM) Body Mass Index [18.5-24.99] 37.21 *>HHI* (01/16/19 2:18 PM) Blood Pressure [90-138/55-84 mm Hg] 144/94 mm Hg *H* (01/16/19 2:18 PM) Blood pressure sites Arm, left (01/16/19 2:18 PM) Weight Obtained Via Standing scale (01/16/19 2:18 PM) Social History Social History Type Response Smoking Status Never smoker entered on: 03/05/17 Sex Female
[2022-04-26 02:12] LABS: HCG Quantitative < 2 mIU/mL
--- NOTE | 2022-04-26 02:15 | PC.NURSE ---
Per Dr Horn, postpone zosyn antibx until CT scan results
[2022-04-26] MEDS: 0.9 % Sodium Chloride 1,000 ML 999 ML IV ×3 (02:28→07:22)
--- NOTE | 2022-04-26 02:33 | PC.NURSE ---
difficulty est IV access
[2022-04-26] MEDS: iohexoL 350 MG/ML 100 ML INFUS..BTL 85 ML IV (03:31)
[2022-04-26 04:17] LABS: Lactic Acid 2.7 mmol/L (0.5-2.0)
[2022-04-26 04:42] VITALS: BP 125/77; PULSE 107; RESP 18; TEMP 37.1; O2SAT 97
[2022-04-26 06:00] VITALS: BP 122/66; PULSE 93; RESP 17; TEMP 36.8; O2SAT 98
[2022-04-26 06:01] LABS: Reflex Lactate? Lactic Acid Added
--- NOTE | 2022-04-26 06:38 | PC.NURSE ---
lactic acid drawn and placed on ice labeled and sent to lab via tube system
--- NOTE | 2022-04-26 07:09 | P.CONOB_ITS ---
CREDENTIALER - CN: HPI Data of Consult Consult date: 04/26/22 Primary Care Provider: Unknown Physician Consult Narrative Narrative: I was consulted at 06:[address] Wilder on Zulma Siddiqui regarding a pelvic mass on CT scan. The patient is a 31 year old female presenting to the emergency room with abdominal pain. The patient states that her pain started yesterday morning similar to her her menstrual periods, then it became more severe and was located in her epigastric area and throughout her entire abdomen.? The pain was intermittent but 8/10 at its worst, in addition to pain was associated with multiple episodes of vomiting and 4 episodes of loose diarrheal stool. No vaginal bleeding or discharge or any other symptoms. CT scan showed a left adnexal mass measuring 11.7 x 7.4 x 12.3 cm, the appearance of a dermoid, with associated fat and calcifications, with normal appendix. White count 23 K, H&H 16.6/49.7, urine test negative, COVID-19, RSV and influenza a and B all negative, chemistry within normal except for lactic acid at 2.7 dropped to 2.5, then down to 1.8 after IV hydration. The patient received IV hydration and a dose of Unasyn 3 g, Dr. Wilder interpretation of lactic acidosis is secondary to dehydration cc:: CC: OB [facility] Social History Social History Alcohol intake: never Smoked in Last 30 Days: No Use of substances other than those prescribed or required for medical reasons: No Advance Directives: No Patient : No Meds Allergies Allergy/AdvReac Type Severity Reaction Status Date / Time SEAFOOD Allergy Severe ANAPHYLAXIS Uncoded 10/26/19 19:46 CREDENTIALER Physical Exam Vitals Vital signs: Temp Pulse Resp BP Pulse Ox O2 Del Method 98.2 F 93 17 122/66 98 04/26/22 06:00 04/26/22 06:00 04/26/22 06:00 04/26/22 06:00 04/26/22 06:00 04/26/22 06:00 BMI result Body Mass Index 43.1 Abdomen Auscultation/Inspection/Palpation: Normal bowel sounds, Soft, Non-distended and No tenderness CREDENTIALER - Results Labs 04/26/22 01:15 04/26/22 01:15 Labs: Short CBC 04/26/22 Range/Units 01:15 WBC 23.0 H (4.8-10.8) X10*3/uL Hgb 16.6 H (12.0-16.0) g/dl Hct 49.7 H (37.0-47.0) % Plt Count 376 (160-400) X10*3/uL BMP 04/26/22 01:15 Sodium 139 Potassium 4.4 Chloride 106 Carbon Dioxide 23 BUN 14 Creatinine 0.77 Calcium 9.3 Liver Function 04/26/22 Range/Units 01:15 Total Bilirubin 0.4 (0.0-1.0) mg/dL Direct Bilirubin < 0.2 (0.0-0.5) mg/dL AST 12 (5-31) U/L ALT 13 (0-31) U/L Alkaline Phosphatase 79 (39-117) U/L Albumin 3.7 (3.5-5.0) g/dL Urine 04/26/22 04/26/22 Range/Units 01:38 01:38 Urine Color RED Urine Appearance Turbid Urine pH 5.5 (5.0-9.0) Ur Specific [place] >= 1.030 H (1.005-1.025) Urine Protein 100 (2+) H (Neg-Trace) mg/dL Urine Glucose (UA) Negative (Negative) mg/dL Urine Test NEGATIVE (NEGATIVE) Imaging CT scan - pelvis: Radiologist's impression: ITS Impressions Abdomen/Pelvis CT 04/26/22 03:31 IMPRESSION: 1. Normal appendix. 2. Large left adnexal mass with associated fat and calcifications. This has the appearance of a dermoid. Fleischner guidelines were followed. US - abdomen: Radiologist's impression: ITS Impressions Abdomen/Pelvis CT 04/26/22 03:31 IMPRESSION: 1. Normal appendix. 2. Large left adnexal mass with associated fat and calcifications. This has the appearance of a dermoid. Fleischner guidelines were followed. Doppler Study Ultrasound 04/26/22 08:11 IMPRESSION: 1. Complex left ovarian lesion with calcification and echogenic, fat components, consistent with a dermoid. Unable to detect vascular flow within the ovaries due to difficult visualization. Ovarian torsion cannot be excluded in the appropriate clinical setting. 2. Sonographically unremarkable uterus and right ovary. Pelvis Ultrasound 04/26/22 08:11 IMPRESSION: 1. Complex left ovarian lesion with calcification and echogenic, fat components, consistent with a dermoid. Unable to detect vascular flow within the ovaries due to difficult visualization. Ovarian torsion cannot be excluded in the appropriate clinical setting. 2. Sonographically unremarkable uterus and right ovary. Assessment and Plan (1) Gastroenteritis: Status: Acute Defer the management of leukocytosis, dehydration, lactic acidosis to the ER team (2) Ovarian cyst: Status: Acute Plan Discussed with the patient the finding on CT scan and pelvic ultrasound suggestive of a large dermoid cyst. Since the patient's clinical history and physical exam including upper abdominal pain with no lower pelvic pain, normal abdominal exam with history of diarrhea and nausea and vomiting, ovarian torsion is unlikely. Signs and symptoms of ovarian torsion and/or rupture were discussed with the patient. Instructions given to patient to call or come back to emergency room in case of sudden pelvic pain, nausea or vomiting. 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 All questions answered, the patient verbalized understanding Time Spent With Patient Time: Total time managing care of this patient today ____ minutes.
[2022-04-26 07:14] LABS: ~Lactic Acid-LAB USE ONLY 2.5 mmol/L (0.5-2.0)
--- NOTE | 2022-04-26 07:19 | PC.NURSE ---
Resumed care of this patient this AM, she is resting comfortably in bed at this time, family at bedside. Denies pain, a/ox4. orders placed for further testing at this time
--- NOTE | 2022-04-26 07:26 | PC.NURSE ---
1L up per Dr Mari. Plan is to U/S patient this morning and plan based on that. Family in room with patient. Will continue to monitor.
[2022-04-26 07:57] LABS: Lactic Acid 1.8 mmol/L (0.5-2.0)
--- NOTE | 2022-04-26 08:29 | PC.NURSE ---
U/S complete. Lactic acid <2. Disposition pending.
[2022-04-26 08:38] LABS: Reflex Lactate? 2 Y
[2022-04-26 10:00] VITALS: BP 127/87; PULSE 98; RESP 20; TEMP 36.7; O2SAT 99
== END 2022-04-26 10:22 | disposition home or self-care (01) ==
PROVIDERS: Emergency Medicine; Emergency Provider Emergency Medicine Emergency Medical Services
DX: N83.202 Unspecified ovarian cyst, left side (principal); K52.9 Noninfective gastroenteritis and colitis, unspecified; D72.829 Elevated white blood cell count, unspecified; R10.13 Epigastric pain; I10 Essential (primary) hypertension; R10.2 Pelvic and perineal pain; R60.0 Localized edema; Z20.822 Contact with and (suspected) exposure to COVID-19; Z20.828 Contact with and (suspected) exposure to other viral communicable diseases; Z79.899 Other long term (current) drug therapy
CPT/HCPCS: 0241U; 36415; 74177; 76856; 80048; 80076; 81001; 81025; 83605; 83690; 84702; 85025; 87040; 93975; 96361; 96374; 96375; 99284; Q9967